=== PATIENT | female | born 1975 | race Caucasian/White ===

== ENCOUNTER 2020-02-04 19:11 | Observation (INO) ==
[2020-02-04] MEDS ORDERED: NITROGLYCERIN 2% OINT 1 INCH/GM PACK TOP STA (19:52)
[2020-02-04] MEDS ORDERED: SODIUM CHLORIDE 0.9% 500 ML IV STA (19:52)
[2020-02-04] MEDS ORDERED: ASPIRIN 325 MG TABLET PO STA (19:52)
[2020-02-04] MEDS ORDERED: ALUM/MAG/SIMETH/LIDO VISC 1:1 30 ML BOTTLE PO STA (19:52)
[2020-02-04] MEDS ORDERED: MORPHINE 4 MG/1 ML VIAL IV STA (19:52)
[2020-02-04] MEDS ORDERED: ONDANSETRON 4 MG/2 ML VIAL IV STA (19:52)
[2020-02-04 19:59] LABS: Basophils # 0.1 10*3/uL (0.0-0.2); Basophils % 0.9 % (0.0-0.8); Eosinophils # 0.1 10*3/uL (0.0-0.87); Hematocrit 39.8 VOL% (35.7-47.0); Hemoglobin 13.5 GM/DL (12.0-16.0); Immature Granulocytes % 0.6 %; Immature Granulocytes Absolute 0.07 #; Lymphocytes # 1.6 10*3/uL (1.4-4.0); Lymphocytes % 13.6 % (21.3-54.2); Mean Corpuscular HGB Conc 33.9 GM/DL (32-36); Mean Corpuscular Volume 82.9 FL (87-102); Mean Platelet Volume 9.4 FL (9.6-12.0); Monocytes % 5.2 % (1.7-12.7); Neutrophils % 78.7 % (38.7-73.9); Platelet Count 289 T/CUMM (130-400); Red Cell Distribution Width 12.4 % (9.3-17.3); White Blood Count 11.7 T/CUMM (4-12)
[2020-02-04 20:17] LABS: Albumin 3.8 G/DL (3.4-5.0); Bilirubin,Total 0.5 MG/DL (0.2-1.0); Calcium 9.2 MG/DL (8.5-10.1); Osmolality,Calculated 286.3 MOS/KG (273-304)
[2020-02-04 20:20] LABS: PT Patient Result 10.8 SECS (9.8-11.9)
[2020-02-04 20:53] LABS: Apearance,Urine CLEAR (Clear); Bilirubin,Urine Negative (Negative); Blood, Urine Negative (Negative); Glucose,Urine (UA) 50 mg/dL (Negative); Ketones,Urine 20 mg/dL (Negative); Mucus,Urine Occasional /LPF (Occasional); Nitrite,Urine Negative (Negative); Protein,Urine Negative; RBC,Urine 1 /HPF (0-4); Squamous Epithelial Cell,Urine Occasional /HPF (0-10); Urine Color Yellow (Yellow); Urine Specific Gravity 1.015 (1.001-1.035); Urine Urobilinogen < 2.0 EU/DL (0.2-1.0); WBC,Urine 2 /HPF (0-6)
[2020-02-04 21:02] LABS: Barbiturates Screen,Urine Negative (Negative); Benzodiazepines Screen,Urine Negative (Negative); Cannabinoid Screen,Urine Negative (Negative); Opiate Screen,Urine Positive (Negative); Phencyclidine Screen,Urine Negative (Negative)
[2020-02-04] MEDS ORDERED: GLUCAGON 1 MG VIAL IM PRN (21:36)
[2020-02-04] MEDS ORDERED: MAGNESIUM HYDROXIDE SUSP 30 ML UDCUP PO PRN (21:36)
[2020-02-04] MEDS ORDERED: NITROGLYCERIN SL 0.4 MG TABLET SL PRN (21:36)
[2020-02-04] MEDS ORDERED: MORPHINE 4 MG/1 ML VIAL IV PRN (21:36)
[2020-02-04] MEDS ORDERED: traMADol 50 MG TABLET PO PRN (21:36)
[2020-02-04] MEDS ORDERED: DEXTROSE 50% 25 GM/50 ML VIAL IV PRN (21:36)
[2020-02-04] MEDS ORDERED: ONDANSETRON 4 MG/2 ML VIAL IV PRN (21:36)
[2020-02-04] MEDS ORDERED: ALUM/MAG/SIMETH/LIDO VISC 1:1 30 ML BOTTLE PO PRN (21:36)
[2020-02-04] MEDS ORDERED: ACETAMINOPHEN 325 MG TABLET PO PRN (21:36)
[2020-02-04] MEDS ORDERED: BISACODYL 5 MG TABLET PO PRN (21:36)
[2020-02-05 02:21] LABS: Troponin I < 0.015 NG/ML (0.00-0.045)
[2020-02-05] MEDS ORDERED: SODIUM CHLORIDE 0.9% 1,000 ML IV SCH (06:00)
[2020-02-05 06:54] LABS: Partial Thromboplastin Time 27.3 SECS (23.9-33.8)
[2020-02-05 07:08] LABS: Troponin I < 0.015 NG/ML (0.00-0.045)
[2020-02-05 07:25] LABS: Albumin 3.6 G/DL (3.4-5.0); Bilirubin,Total 1.3 MG/DL (0.2-1.0); Calcium 9.2 MG/DL (8.5-10.1); Risk Ratio 4.05; Total Protein 6.4 G/DL (6.4-8.3)
[2020-02-05] MEDS ORDERED: INSULIN LISPRO 100 UNIT/ML SUBCUT SCH (07:30)
[2020-02-05] MEDS ORDERED: carvediloL 3.125 MG TABLET PO SCH (08:00)
[2020-02-05 08:41] VITALS: BP 149/96
[2020-02-05] MEDS ORDERED: PANTOPRAZOLE 40 MG TABLET PO SCH (09:00)
[2020-02-05] MEDS ORDERED: ASPIRIN EC 325 MG TABLET PO SCH (09:00)
[2020-02-05] MEDS ORDERED: ASCORBIC ACID 500 MG TABLET PO SCH (09:00)
[2020-02-05] MEDS ORDERED: FLUTICASONE 50 MCG NASAL SPRAY 16 GM BOTTLE BOTH NARES SCH (09:00)
[2020-02-05] MEDS ORDERED: CHOLECALCIFEROL 5,000 UNIT TABLET PO SCH (09:00)
== END 2020-02-05 12:45 | disposition home or self-care (01) ==
LOC: EDUNIT# → EDBD → N.ED 19:11 → N.EDINP 19:11 → SUATTDRO 21:36 → N.EDINP 23:35 → N.TELES 23:56
PROVIDERS: ADMIT Internal Medicine; ATTEND Internal Medicine